=== PATIENT | female | born 2000 | race Asian ===

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

== ENCOUNTER 2019-01-28 15:49 | Emergency (ER) | payer MEDICAID ==
[~2019-01-28] VITALS: Ht 160 cm; Wt 41.7 kg
[2019-01-28 16:34] VITALS: BP 103/65
[2019-01-28] MEDS ORDERED: diphenhdrAMINE HCL 50 MG/1 ML VL IM ONE (17:00)
[2019-01-28] MEDS ORDERED: EPINEPHrine HCL 1 MG/1 ML AMP SC ONE (17:00)
== END 2019-01-28 17:43 | disposition home or self-care (01) ==
LOC: ER 15:55
DX: T78.40XA Allergy, unspecified, initial encounter (principal); X58.XXXA Exposure to other specified factors, initial encounter
CPT/HCPCS: 96372; 99283; J0171; J1200

== ENCOUNTER 2019-02-10 17:54 | Emergency (ER) | payer MEDICAID ==
[~2019-02-10] VITALS: Ht 160 cm; Wt 41.7 kg
[2019-02-10 18:22] VITALS: BP 114/70
[2019-02-10 18:55] LABS: Basophils # (auto) 0 uL; Basophils % (auto) 0.1 % (0.0-2.0); Eosinophils # (auto) 0.1 uL; Eosinophils % (auto) 0.5 % (0.0-7.0); Hematocrit 39.9 % (36.0-46.0); Mean Corpuscular Hemoglobin 25.1 pg (28.0-32.0); Monocytes # (auto) 0.3 uL; Red Blood Cells 5.08 10^6/uL (4.0-5.20)
[2019-02-10 18:56] LABS: Urine Bacteria FEW /hpf (None Seen); Urine Blood 2+ /uL (Negative); Urine Hyaline Cast FEW /lpf (0 - 2); Urine Specific Gravity 1.006 (1.001-1.035); Urine WBC 2 /hpf (0 - 5)
[2019-02-10 18:57] LABS: Hemoglobin 12.7 g/dL (12.2-16.2); Lymphocytes # (auto) 2.3 uL; Lymphocytes % (auto) 20.1 % (10.0-50.0); Mean Corpuscular Hgb Conc. 31.9 g/dL (32.0-36.0); Mean Corpuscular Volume 78.4 fL (80.0-100.0); Neutrophils # (auto) 8.8 uL; Neutrophils % (auto) 76.3 % (37.0-80.0); Nucleated Red Blood Cells % 0.1 %; Platelet Count (auto) 240 10^3/uL (140-450); Red Cell Distribution Width 14.1 % (11.8-14.3); White Blood Cell 11.6 10^3/uL (4.4-10.8)
[2019-02-10 19:05] LABS: Albumin 3.3 g/dL (3.4-5.0); Anion Gap 5 (5-15); Blood Urea Nitrogen 10 mg/dL (7-18); Calcium 8.2 mg/dL (8.5-10.1); Carbon Dioxide 28 mmol/L (21-32); Chloride 110 mmol/L (98-107); Glucose 106 mg/dL (74-106); Potassium 3.3 mmol/L (3.5-5.1); Sodium 143 mmol/L (136-145)
[2019-02-10 19:07] LABS: BUN/Creatinine Ratio 13.7; GFR African American 132 mL/min; GFR Non-African American 109 mL/min
[2019-02-10] MEDS ORDERED: methylPREDNISolone SOD SUCC 125 MG/2 ML VL IM ONE (19:15)
[2019-02-10 19:19] LABS: Alanine Aminotransferase 14 U/L (13-56); Alkaline Phosphatase 72 U/L (45-117); Aspartate Aminotransferase 12 U/L (15-37); Bilirubin, Total 0.3 mg/dL (0.2-1.0); Total Protein 6.6 g/dL (6.4-8.2)
== END 2019-02-10 20:46 | disposition home or self-care (01) ==
LOC: ER 17:58
DX: T78.40XA Allergy, unspecified, initial encounter (principal); J45.909 Unspecified asthma, uncomplicated; X58.XXXA Exposure to other specified factors, initial encounter
CPT/HCPCS: 36415; 80053; 81001; 81025; 84484; 85025; 93005; 96372; 99284; J2930

== ENCOUNTER 2019-04-22 09:01 | Emergency (ER) | payer MEDICAID ==
[~2019-04-22] VITALS: Ht 160 cm; Wt 40.8 kg
[2019-04-22 09:12] VITALS: BP 110/76
[2019-04-22 09:48] LABS: Urine Bacteria NONE SEEN /hpf (None Seen); Urine Blood Negative /uL (Negative); Urine Mucus FEW (None Seen); Urine Specific Gravity 1.025 (1.001-1.035); Urine WBC 2 /hpf (0 - 5)
[2019-04-22] MEDS ORDERED: ONDANSETRON ODT 4 MG TAB PO ONE (10:00)
== END 2019-04-22 10:37 | disposition home or self-care (01) ==
LOC: ER 09:01
DX: R11.2 Nausea with vomiting, unspecified (principal); R19.7 Diarrhea, unspecified; R35.0 Frequency of micturition; J45.909 Unspecified asthma, uncomplicated
CPT/HCPCS: 81001; 81025; 99283; Q0162

== ENCOUNTER 2023-11-01 20:28 | Emergency (ER) | payer MEDICAID ==
[~2023-11-01] VITALS: Ht 160 cm; Wt 42.3 kg
[2023-11-01 21:53] VITALS: BP 134/82; PULSE 111; RESP 16; O2SAT 100
[2023-11-01 23:15] LABS: Basophils # (auto) 0.1 10 ^3/uL (0-0.2); Hemoglobin 14.1 g/dL (12.2-16.2); White Blood Cell 7.9 10^3/uL (4.4-10.8)
[2023-11-01 23:18] LABS: Alanine Aminotransferase 13 U/L (7-40); Albumin 4.9 g/dL (3.2-4.8); Alkaline Phosphatase 68 U/L (46-116); Anion Gap 13 (5-15); Aspartate Aminotransferase 12 U/L (13-40); BUN/Creatinine Ratio 14.1 (10.0-20.0); Blood Urea Nitrogen 11 mg/dL (9-23); Calcium 10.1 mg/dL (8.7-10.4); Carbon Dioxide 21 mmol/L (20-30); Chloride 106 mmol/L (98-107); Glucose 92 mg/dL (74-106); Potassium 3.8 mmol/L (3.5-5.1); Sodium 140 mmol/L (136-145)
[2023-11-01 23:19] LABS: Basophils % (auto) 0.8 % (0.0-2.0); Bilirubin, Total 0.3 mg/dL (0.2-1.0); Eosinophils # (auto) 0.5 10 ^3/uL (0-0.8); Eosinophils % (auto) 6.9 % (0.0-7.0); Hematocrit 41.8 % (36.0-46.0); Lymphocytes # (auto) 2.7 10 ^3/uL (0.4-5.4); Lymphocytes % (auto) 33.8 % (10.0-50.0); Mean Corpuscular Hemoglobin 26.7 pg (28.0-32.0); Mean Corpuscular Hgb Conc. 33.7 g/dL (32.0-36.0); Mean Corpuscular Volume 79.3 fL (80.0-100.0); Monocytes # (auto) 0.7 10 ^3/uL (0-1.3); Monocytes % (auto) 8.3 % (0.0-12.0); Neutrophils % (auto) 50.2 % (37.0-80.0); Nucleated Red Blood Cells % 0.2 %; Red Blood Cells 5.27 10^6/uL (4.0-5.20); Red Cell Distribution Width 14.2 % (11.8-14.3)
== END 2023-11-02 04:37 | disposition home or self-care (01) ==
LOC: ER 20:28
DX: K92.1 Melena (principal); K59.00 Constipation, unspecified; J45.909 Unspecified asthma, uncomplicated
CPT/HCPCS: 36415; 80053; 85025